=== PATIENT | male | born 1955 | race Caucasian/White ===

== ENCOUNTER 2023-05-23 14:27 | Outpatient (CLI) | payer BC | END 2023-05-23 14:28 | disposition home or self-care (01) | LOC: CSHMRI 14:27 | PROVIDERS: ATTEND Surgery | DX: M47.816 Spondylosis without myelopathy or radiculopathy, lumbar region (principal); M51.36 Other intervertebral disc degeneration, lumbar region; M41.86 Other forms of scoliosis, lumbar region | CPT/HCPCS: 72110; 72131; 72148 ==

== ENCOUNTER 2023-09-02 09:12 | Outpatient (CLI) | payer BC, MEDICARE | END 2023-09-02 09:13 | disposition home or self-care (01) | LOC: CSHRAD 09:12 | PROVIDERS: ATTEND Surgery | DX: M43.16 Spondylolisthesis, lumbar region (principal); M47.816 Spondylosis without myelopathy or radiculopathy, lumbar region; Z98.890 Other specified postprocedural states | CPT/HCPCS: 72100 ==